=== PATIENT | female | born 1990 | race Caucasian/White ===

== ENCOUNTER 2023-07-06 09:03 | Emergency (ER) | payer BC, SELFPAY ==
[2023-07-06 09:26] VITALS: BP 141/83; PULSE 54; RESP 18; TEMP 36.8; O2SAT 98; BMI 17.9
--- NOTE | 2023-07-06 09:41 | W.ED.ANIMALB ---
HPI - Animal Bite General: Chief Complaint: Animal Bite Stated Complaint: bug bite, phys sent Time Seen by Provider: 07/06/23 09:04 History of Present Illness: Patient presents to the ER with cellulitis and streaking up inside of her left upper arm. Patient has been on cephalexin for the last 4 days. Patient thinks she got bit by a spider. Patient says sometimes the this redness is worse sometimes is better but definitely has not Review of Systems General: Reports: 10 or more systems reviewed and unremarkable except in HPI and below Physical Exam Const: COMMON NORMALS: no acute distress, average body habitus, patient oriented x3, no limitations, healthy appearing, alert and well nourished HENMT: COMMON NORMALS: normocephalic, atraumatic, hearing grossly normal bilaterally, external ears normal, Normal external nose present, moist oral mucous membranes and oropharynx normal HEAD & SCALP: normocephalic and atraumatic NOSE: Normal external nose present EXTERNAL EAR: Yes external ears normal Neck/C-Spine: COMMON NORMALS: no JVD Lymph: LYMPHATIC: no lymphadenopathy noted Chest: COMMONS NORMALS: normal inspection of the chest and normal palpation of entire chest wall Resp: COMMON NORMALS: normal respiratory effort, No retractions, No use of accessory muscles and clear to auscultation bilaterally AUSCULTATION: clear to auscultation bilaterally Cardio: COMMON NORMALS: no JVD, regular rate, regular rhythm, S1 normal heart sound present, S2 normal heart sound present, No gallops present (Cardio), No clicks present (Cardio), No murmurs present (Cardio) and No rub (Cardio) RATE: regular rate RHYTHM: regular rhythm HEART SOUNDS: S1 normal heart sound present and S2 normal heart sound present GI: COMMON NORMALS: Normal to inspection, nondistended, normoactive bowel sounds present, Soft to palpation, non-tender, No hepatosplenomegaly present and no masses PALPATION: Yes Soft to palpation and Yes No hepatosplenomegaly present Extremity: NARRATIVE EXTREMITY EXAM: Cellulitis on left inner elbow streaking up into the left bicipital region all the way to axilla. Neuro: COMMON NORMALS: patient oriented x3 SENSORIUM/ORIENTATION: Yes alert Course Vital Signs: Vital signs: Vital Signs Temperature 98.2 F 07/06/23 09:26 Pulse Rate 54 L 07/06/23 09:26 Respiratory Rate 18 07/06/23 09:26 Blood Pressure 141/83 07/06/23 09:26 Pulse Oximetry 98 07/06/23 09:26 Oxygen Delivery Me thod Room Air 07/06/23 09:26 MDM - Animal Bite Medical Decision Making Patient has an outpatient failure of cephalexin for her cellulitis. Patient's been on for 4 days and cellulitis not drastically improved. Patient be changed over to clindamycin and told to follow-up with her PCP in approximately 7 days for further evaluation. Differential Diagnosis Unlikely bite by animal, cat bite, dog bite or rabies contact Medical Records I reviewed the patient's medical records. Lab Data I reviewed the patient's lab results. No radiology studies performed this visit Discharge Plan Discharge Patient Disposition: Home Clinical Impression: Cellulitis Qualifiers: Site of cellulitis of extremity: upper extremity Laterality: left Condition: Stable Prescriptions: New clindamycin HCl 300 mg capsule 300 mg PO Q6H 7 Days Qty: 28 0RF No Action cephalexin 500 mg capsule 500 mg PO QID Discharge Orders: Discharge ED (Routine); Ordered 07/06/23 Ordered By: Zuhair Meléndez Referrals: Sharlene Mathur MD [Primary Care Provider] - 1 week Patient Instructions: Cellulitis (ED) Activity Restrictions/Additional Instructions: please start clindamycin as prescribed. Please follow-up with your family practice physician within the next 7 days for further evaluation and treatment. Coding Level of Care Code ED [employer] for Evita Jameson
== END 2023-07-06 10:00 | disposition home or self-care (01) ==
PROVIDERS: Emergency Provider Emergency Medicine; PCP Family Medicine
DX: L03.114 Cellulitis of left upper limb (principal)
CPT/HCPCS: 99283

== ENCOUNTER 2024-03-04 18:21 | Emergency (ER) | payer BC, SELFPAY ==
[2024-03-04 18:28] VITALS: BP 103/61; PULSE 105; RESP 16; TEMP 36.7; O2SAT 100; BMI 19.5
== END 2024-03-04 21:10 | disposition left against medical advice (07) ==
LOC: ER 18:28
PROVIDERS: Emergency Provider Family Medicine; PCP Family Medicine
DX: Z53.21 Procedure and treatment not carried out due to patient leaving prior to being seen by health care provider (principal)